=== PATIENT | female | born 1995 | race Caucasian/White ===

== ENCOUNTER → 2017-03-03 | Outpatient (REF) | payer BC | LOC: M LAB REF 09:24 | PROVIDERS: ATTEND Physician Assistant | DX: R30.0 Dysuria (principal) ==

== ENCOUNTER → 2019-03-06 | Outpatient (REF) | payer BC, MEDICAID | LOC: M SFHCLERA 15:03 | PROVIDERS: ATTEND Physician Assistant | DX: J03.90 Acute tonsillitis, unspecified (principal); B37.3 Candidiasis of vulva and vagina ==